=== PATIENT | female | born 1940 | race Caucasian/White ===

== ENCOUNTER 2021-04-20 09:34 | Outpatient (REF) | payer MEDICARE, SELFPAY ==
--- NOTE | ~2021-04-20 | MM_ITS ---
EXAMINATION: BONE DENSITOMETRY CLINICAL INDICATION: Osteopenia. COMPARISON: Previous BD dated 12/06/2016 and baseline BD dated 06/30/2006. TECHNIQUE: Using a [employer] DXA System (software version: 13.1) manufactured by [employer], dual-energy x-ray absorptiometry was performed of the lumbar spine and left hip. The images are of good technical quality. Summary results are attached. FINDINGS: AP SPINE L1-L2 (excluding L3 and L4): The data of L1-L4 has been changed to exclude the L3 and L4 vertebral bodies, because degenerative sclerosis at these levels may cause overestimation of lumbar spine density. Current: BMD 1.113 g/cm2, Z-score 1.5, T-score -0.4, normal, 4.7% increase from previous, 10.4% increase from baseline (<5% change is not significant). Prior: BMD 1.063 g/cm2. Baseline: BMD 1.008 g/cm2. LEFT FEMUR, NECK: Current: BMD 0.819 g/cm2, Z-score 0.6, T-score -1.6, osteopenia. Prior: BMD 0.826 g/cm2. Baseline: BMD 0.856 g/cm2. LEFT FEMUR, TOTAL: Current: BMD 0.898 g/cm2, Z-score 1.2, T-score -0.9, normal, 1.2% decrease from previous, 5.4% decrease from baseline (<5% change is not significant). Prior: BMD 0.909 g/cm2. Baseline: BMD 0.949 g/cm2. IDENTIFIED RISK FACTORS: Osteoporosis, height loss, secondary osteoporosis, menopause, hysterectomy, left oophorectomy. HISTORY OF FRACTURE: None listed. MEDICATIONS: Vitamin D. MM/XR DEXA axial skeleton IMPRESSION: 1. DIAGNOSIS: Osteopenia based on the lowest T-score value of -1.6 in the femoral neck applying World Health Organization criteria. 2. 10-YEAR FRACTURE RISK PREDICTION, FRAX: Major osteoporotic fracture (clinical spine, forearm, hip or shoulder) 12.7%. Hip fracture 3.2%. 3. Treatment Recommendations: NOF guidelines recommend consideration for treatment in postmenopausal women and men age 50 and older presenting with the following: -A hip or vertebral (clinical or morphometric) fracture. -T-score less than or equal to -2.5 at the femoral neck or spine after appropriate evaluation to exclude secondary causes. -Low bone mass at the hip or spine and a 10-year fracture probability by FRAX of greater than or equal to 3% for hip fracture or greater than or equal to 20% for major osteoporotic fracture based on the [place] adapted WHO algorithm. 4. Other Recommendations: All treatment decisions require clinical judgment and consideration of individual patient factors, including patient preferences, comorbidities, previous drug use, risk factors not captured in the FRAX model (e.g. frailty, falls, vitamin D deficiency, increased bone turnover, interval significant decline in bone density) and possible under or overestimation of fracture risk by FRAX. Additional medical evaluation for secondary cause of low bone mineral density may be appropriate. FUTURE SCAN RECOMMENDATION: People with diagnosed cases of osteoporosis or at high risk for fracture should have regular bone mineral density tests. For patients eligible for Medicare, routine testing is allowed once every 2 years. The testing frequency can be increased to one year for patients who have rapidly progressing disease, those who are receiving or discontinuing medical therapy to restore bone mass, or have additional risk factors.
--- NOTE | ~2021-04-20 | MM_ITS ---
EXAMINATION: MM SCREENING DIGITAL BREAST TOMOSYNTHESIS, BILATERAL CLINICAL INFORMATION: Screening. Asymptomatic. The lifetime risk of breast cancer based on the Tyrer-Cuzick Model is 2.5%. COMPARISON: Mammography: April 15, 2020 and studies dating back to September 10, 2013 TECHNIQUE: Digital breast tomosynthesis is performed in both the craniocaudal and mediolateral oblique views along with computer-aided detection (CAD). Synthesized 2D images are generated from the tomosynthesis. FINDINGS: There are scattered areas of fibroglandular density (ACR BI-RADS breast composition Category b). There are no significant masses, abnormal calcifications, or other abnormalities. There is multiplicity and bilaterality of calcifications. Stable region of architectural distortion is seen upper outer aspect of the right breast. MM/MM tomosynthesis screening BI IMPRESSION: There are no significant changes from prior study. ASSESSMENT: BI-RADS 1: Negative RECOMMENDATION: Routine annual mammography screening. This patient's information was entered into a reminder system with a target due date for their next mammogram.
== END 2021-04-20 09:35 | disposition home or self-care (01) ==
LOC: HO.MAMMO 09:34
PROVIDERS: PCP Internal Medicine; Visit Provider Internal Medicine
DX: Z12.31 Encounter for screening mammogram for malignant neoplasm of breast (principal); Z13.820 Encounter for screening for osteoporosis; M81.0 Age-related osteoporosis without current pathological fracture; M85.80 Other specified disorders of bone density and structure, unspecified site; Z78.0 Asymptomatic menopausal state; Z90.722 Acquired absence of ovaries, bilateral; Z98.890 Other specified postprocedural states; Z79.899 Other long term (current) drug therapy
CPT/HCPCS: 77063; 77067; 77080

== ENCOUNTER 2022-04-28 09:36 | Outpatient (REF) | payer MEDICARE, SELFPAY ==
--- NOTE | ~2022-04-28 | MM_ITS ---
EXAMINATION: MM SCREENING DIGITAL BREAST TOMOSYNTHESIS, BILATERAL CLINICAL INFORMATION: Screening. Asymptomatic. The lifetime risk of breast cancer based on the Tyrer-Cuzick Model is 2%. COMPARISON: Mammography: 04/20/2021, 04/15/2020, 04/10/2019 TECHNIQUE: Digital breast tomosynthesis is performed in both the craniocaudal and mediolateral oblique views along with computer-aided detection (CAD). Synthesized 2D images are generated from the tomosynthesis. FINDINGS: There are scattered areas of fibroglandular density (ACR BI-RADS breast composition Category b). Parenchymal pattern is similar to prior studies. There is no developing density or interval mass or architectural abnormality. There are 2 biopsy clip markers again noted posterior upper outer left breast. There are scattered coarse, punctate round, and some ductal secretory calcifications. The axilla and skin contours are unremarkable. No significant changes from prior studies. MM/MM tomosynthesis screening BI IMPRESSION: No mammographic evidence of malignancy. ASSESSMENT: BI-RADS 2: Benign RECOMMENDATION: Routine annual mammography screening. This patient's information was entered into a reminder system with a target due date for their next mammogram.
== END 2022-04-28 09:37 | disposition home or self-care (01) ==
LOC: HO.MAMMO 09:36
PROVIDERS: PCP Internal Medicine; Visit Provider Internal Medicine
DX: Z12.31 Encounter for screening mammogram for malignant neoplasm of breast (principal)
CPT/HCPCS: 77063; 77067

== ENCOUNTER 2023-05-11 10:44 | Outpatient (REF) | payer MEDICARE, OTHER, SELFPAY ==
--- NOTE | ~2023-05-11 | MM_ITS ---
EXAMINATION: MM SCREENING DIGITAL BREAST TOMOSYNTHESIS, BILATERAL CLINICAL INFORMATION: Screening. Asymptomatic. COMPARISON: Mammography: This study is compared with prior exams dating back to 2018. TECHNIQUE: Digital breast tomosynthesis is performed in both the craniocaudal and mediolateral oblique views along with computer-aided detection (CAD). Synthesized 2D images are generated from the tomosynthesis. FINDINGS: The breasts are heterogeneously dense, which may obscure small masses (ACR BI-RADS breast composition Category c). There are no significant masses, abnormal calcifications, or other abnormalities. There are 2 tissue markers in the superior aspect of the left breast from prior benign percutaneous biopsy. There are few, benign calcifications in each breast. MM/MM tomosynthesis screening BI IMPRESSION: No mammographic evidence of malignancy. ASSESSMENT: BI-RADS BI-RADS 2 - Benign Findings RECOMMENDATION: Routine annual mammography screening. 1 year F/U This examination should not preclude the clinical evaluation of a suspicious palpable abnormality. This patient's information was entered into a reminder system with a target due date for their next mammogram.
== END 2023-05-11 10:45 | disposition home or self-care (01) ==
LOC: HO.MAMMO 10:44
PROVIDERS: PCP Internal Medicine; Visit Provider Internal Medicine
DX: Z12.31 Encounter for screening mammogram for malignant neoplasm of breast (principal)
CPT/HCPCS: 77063; 77067

== ENCOUNTER → 2023-05-11 11:00 | Outpatient (BNV) | payer MEDICARE, OTHER, SELFPAY | PROVIDERS: PCP Internal Medicine; Visit Provider Radiology Diagnostic Radiology | DX: Z12.31 Encounter for screening mammogram for malignant neoplasm of breast (principal) | CPT/HCPCS: 77063; 77067 ==

== ENCOUNTER 2024-06-14 14:44 | Outpatient (REF) | payer MEDICARE, OTHER, SELFPAY ==
--- NOTE | ~2024-06-14 | MM_ITS ---
EXAMINATION: MM SCREENING DIGITAL BREAST TOMOSYNTHESIS, BILATERAL CLINICAL INFORMATION: Screening. Asymptomatic. COMPARISON: Mammography: Comparison is made with available priors TECHNIQUE: Digital breast mammography with tomosynthesis is performed in both the craniocaudal and mediolateral oblique views along with computer-aided detection (CAD). FINDINGS: The breasts are heterogeneously dense, which may obscure small masses (ACR BI-RADS breast composition Category c). Left marker clips. There are no significant masses, abnormal calcifications, or other abnormalities. MM/MM tomosynthesis screening BI IMPRESSION: No mammographic evidence of malignancy. ASSESSMENT: BI-RADS BI-RADS 2 - Benign Findings RECOMMENDATION: Routine annual mammography screening. 1 year F/U This examination should not preclude the clinical evaluation of a suspicious palpable abnormality. This patient's information was entered into a reminder system with a target due date for their next mammogram. Electronically signed by: Nilsa Taylor DO 06/25/2024 10:57 AM CRISTINA
== END 2024-06-14 14:45 | disposition home or self-care (01) ==
LOC: HO.MAMMO 14:44
PROVIDERS: PCP Internal Medicine; Visit Provider Internal Medicine
DX: Z12.31 Encounter for screening mammogram for malignant neoplasm of breast (principal)
CPT/HCPCS: 77063; 77067

== ENCOUNTER → 2024-06-14 15:00 | Outpatient (BNV) | payer MEDICARE, OTHER, SELFPAY | PROVIDERS: PCP Internal Medicine; Visit Provider Internal Medicine | DX: Z12.31 Encounter for screening mammogram for malignant neoplasm of breast (principal) | CPT/HCPCS: 77063; 77067 ==

== ENCOUNTER 2025-06-20 11:07 | Outpatient (REF) | payer MEDICARE, OTHER, SELFPAY ==
--- NOTE | ~2025-06-20 | MM_ITS ---
EXAMINATION: MM SCREENING DIGITAL BREAST TOMOSYNTHESIS, BILATERAL CLINICAL INFORMATION: Screening. Asymptomatic. COMPARISON: Mammography: Comparison is made with available priors TECHNIQUE: Digital breast mammography with tomosynthesis is performed in both the craniocaudal and mediolateral oblique views along with computer-aided detection (CAD). FINDINGS: The breasts are heterogeneously dense, which may obscure small masses. Left marker clips. There are no significant masses, abnormal calcifications, or other abnormalities. MM/MM tomosynthesis screening BI IMPRESSION: No mammographic evidence of malignancy. ASSESSMENT: BI-RADS Category 2: Benign RECOMMENDATION: Routine annual mammography screening. 1 year F/U This examination should not preclude the clinical evaluation of a suspicious palpable abnormality. This patient's information was entered into a reminder system with a target due date for their next mammogram. Electronically signed by: Nilsa Taylor DO 06/24/2025 09:07 AM [facility]
--- OUTSIDE RECORDS SUMMARY | 2025-06-20 11:59 | XMS_ITS | Encounter Summary ---
Author Organization [facility] Address [address] [place] [address] Phone Care Team Providers Care Clinical Educator Name Role Phone Abiodun Porras MD Primary Care Provider [phone] Encounter Details Date Type Department Care Team (Late st Contact Info) Description 10/07/2024 Documentation Only [facility] [address] [place] [phone] [place] [address] [place] [phone] Social History Tobacco Use Types Packs/Day Years Used Date Smoking Tobacco: Former Cigarettes Passive Smoke Exposure: Never Smokeless Tobacco: Never Alcohol Use Standard Drinks/Week Comments Yes 0 (1 standard drink = 0.6 oz pur e alcohol) 3 mix drinks a week Comments Unknown Sex and Gender Information Value Date Recorded Sex Assigned at Not on file Legal Sex Female 5:02 PM EST Gender Identity Not on file Sexual Orientation Not on file documented as of this encounter Plan of Treatment Upcoming Encounters Date Type Department Care Team (Late st Contact Info) Description 11/04/2025 10:50 AM EDT Office Visit [facility] [address] [place] [phone] Ron Tan MD [address] [place] [address] documented as of this encounter Visit Diagnoses Not on filedocumented in this encounter Care Teams Clinical Educator Relationship Specialty Start Date End Date Abiodun Porras MD [address] [place] [phone] PCP - General Internal Medicine 05/06/22 documented as of this encounter
--- OUTSIDE RECORDS SUMMARY | 2025-06-20 11:59 | XMS_ITS | Encounter Summary ---
Author Organization [facility] Address [address] [place] [address] Phone Care Team Providers Care Mysql Dba Name Role Phone Abiodun Porras MD Primary Care Provider [phone] Encounter Details Date Type Department Care Team (Late st Contact Info) Description 09/02/2022 Documentation Only [facility] [address] [place] [phone] Abiodun Porras MD [address] [place] [phone] Social History Tobacco Use Types Packs/Day Years [...] Visit [facility], [address] [place] [phone] Ron Tan MD [address] [place] [address] [place] [address] documented as of this encounter Visit Diagnoses Not on filedocumented in this encounter Care Teams Mysql Dba Relationship Specialty Start Date End Date Abiodun Porras MD [address] [place] [address] PCP - General Internal Medicine 05/06/22 documented as of this encounter
--- OUTSIDE RECORDS SUMMARY | 2025-06-20 11:59 | XMS_ITS | Encounter Summary ---
Author Organization [facility] Address [address] [place] [address] Phone Care Team Providers Care Food And Beverage Outlets Manager Name Role Phone Abiodun Porras MD Primary Care Provider [phone] Encounter Details Date Type Department Care Team (Late st Contact Info) Description 10/07/2024 Documentation Only [facility] [address] [place] [phone] [place] [address] [place] [phone] Social History Tobacco Use Types Packs/Day [...] Visit [facility] [address] [place] [phone] Ron Tan MD [address] [place] [address] documented as of this encounter Visit Diagnoses Not on filedocumented in this encounter Care Teams Food And Beverage Outlets Manager Relationship Specialty Start Date End Date Abiodun Porras MD [address] [place] [phone] PCP - General Internal Medicine 05/06/22 documented as of this encounter
--- OUTSIDE RECORDS SUMMARY | 2025-06-20 11:59 | XMS_ITS | Encounter Summary ---
Author Organization [facility] Address [address] [place] [address] Phone Care Team Providers Care Data Conversion Developer Name Role Phone Abiodun Porras MD Primary Care Provider [phone] Encounter Details Date Type Department Care Team (Late st Contact Info) Description 09/06/2022 Documentation Only [facility] [address] [phone] Abiodun Porras MD [address] [place] [phone] Social History Tobacco Use Types Packs/Day Years [...] Visit [facility] [address] [place] [phone] Ron Tan MD [address] [place] [address] [place] [address] [place] [address] documented as of this encounter Visit Diagnoses Not on filedocumented in this encounter Care Teams Data Conversion Developer Relationship Specialty Start Date End Date Abiodun Porras MD [address] [place] [phone] PCP - General Internal Medicine 05/06/22 documented as of this encounter
--- OUTSIDE RECORDS SUMMARY | 2025-06-20 11:59 | XMS_ITS | Clinical Summary ---
Author Organization [facility], Address [address] [place] [address] [place] [address] Phone Care Team Providers Care Orthodontist Assistant Name Role Phone Abiodun Porras MD Primary Care Provider [phone] Allergies Active Allergy Reactions Criticality Noted Date Comments Amiodarone 03/24/2022 Amlodipine 06/04/2018 BLE edema Aspartame 01/06/2018 Atorvastatin Other (see comments) 08/26/2020 Bee Venom 03/24/2022 Cefuroxime Diarrhea 11/30/2017 diarrhea Cilostazol Other (see comments),Nausea And Vomiting,Palpitatio ns,Shortness of breath High 01/12/2022 Ciprofloxacin 11/23/2018 Itching eyes Codeine Other (see comments) 03/21/2008 Bronchospasm or Wheezing Cyclobenzaprine Rash,Shortness of breath High 09/09/2010 Diltiazem Other (see comments),Shortness of breath High 11/22/2021 Bradycardia and hypotension Doxycycline Nausea And Vomiting 04/21/2022 nauseau Duloxetine Nausea 04/25/2019 Fosfomycin 08/24/2021 Myalgia, diahrrea and vomiting Gabapentin Other (see comments) High 12/28/2011 activated fibromyalgia diarrhea Hydralazine Other (see comments) High 01/10/2022 Other reaction(s): Pain Chest pain and dyspnea Iodinated Contrast Media 03/24/2022 Irbesartan Diarrhea 03/26/2018 Methenamine Nausea And Vomiting 10/25/2021 Pt reports dysuria while on medication Metoprolol Other (see comments) 03/10/2020 Very slow pulse and weakness Morphine 03/24/2022 Nitrofurantoin Other (see comments) 12/28/2011 Myalgia, diahrrea and vomiting Other Other (see comments) 12/24/2009 Sugar Substitutes Codeine Derivatives. Ivp Dye. Yellow Dyes. MSG and ALL SUGAR SUBSTITUTE Chicken feathers-itchy Penicillins Hives,Other (see comments) 03/21/2008 Povidone Iodine 03/24/2022 Povidone-Iodine 03/24/2022 Red Dye #40 (Allura Red) 03/24/2022 Regadenoson Shortness of breath High 06/21/2022 Nuclear test Chest pressure, nausea, dyspnea and palpatations Evolocumab 04/27/2022 Rosuvastatin Other (see comments) 10/09/2020 Shellfish Allergy 03/24/2022 Yellow Dye #6 ([place] Yellow) GI intolerance High 12/30/2011 Medications acetaminophen (TYLENOL) 325 MG tablet Take 650 mg by mouth if needed 03/24/2022 Active aspirin (ST YONI) 81 MG EC tablet Take 81 mg by mouth 1 (one) time each day 03/24/2022 Active CINNAMON PO Take 2 capsules by mouth 2 (two) times a day 03/24/2022 Active flecainide (TAMBOCOR) 50 MG tablet Take 50 mg by mouth in the morning and 50 mg in the evening. 03/06/2022 Active fluorometholone (FML) 0.1 % ophthalmic suspension 02/06/2022 Active rivaroxaban (XARELTO) 15 MG tablet Take 15 mg by mouth 1 (one) time each day 04/03/2022 Active estradiol (ESTRACE) 0.1 MG/GM vaginal cream Insert 1 g into the vagina daily 07/18/2022 Active tretinoin (RETIN-A) 0.05 % cream 08/26/2022 Active olmesartan (Benicar) 20 MG tablet Take 1 tablet (20 mg total) by mouth 1 (one) time each day 30 tablet 11 2023 Active doxazosin (CARDURA) 2 MG tablet Take 1 mg by mouth in the morning and 1 mg in the evening. 10/04/2024 Active metoprolol succinate XL (TOPROL XL) 25 MG 24 hr tablet Take 12.5 mg by mouth in the morning. 09/24/2024 Active Aspirin Buf,CaCarb-MgCa rb-MgO, (Bufferin) 325 MG tablet Take 325 mg by mouth in the morning. 05/23/2024 Active Inclisiran Sodium 284 MG/1.5ML solution prefilled syringe Inject 284 mg under the skin Active LORazepam (ATIVAN) 0.5 MG tablet 11/28/2023 Active Active Problems Problem Noted Date Diagnosed Date Hypertension 04/27/2022 Chronic kidney disease 03/24/2022 Hypertensive chronic kidney disease with stage 1 through stage 4 chronic kidney disease, or unspecified chronic kidney disease 03/24/2022 Stage 3a chronic kidney disease 10/25/2021 Recurrent urinary tract infection 02/15/2018 Resolved Problems Problem Noted Date Diagnosed Date Resolved Date Erythematous condition 03/24/202207/05 History of falling 03/24/2022 Hyperlipidemia 03/24/2022 07/05/2022 Hypomagnesemia 03/24/2022 07/05/2022 FDC current use of aspirin 03/24/2022 07/05/2022 Peripheral vascular disease 03/24/2022 07/05/2022 Personal history of nicotine dependence 03/24/2022 07/05/2022 Personal history of other ve nous thrombosis and embolism 03/24/2022 07/05/2022 Atrial fibrillation 03/21/2022 07/05/20 Syncope and collapse 11/09/2021 022 Overview (04/27/2022): Last Assessment & Plan: She had 2 syncopal episodes after her peripheral arterial procedure. She had been n.p.o. prior to the procedure. The episode occurred while she was sitting in the car making orthostatic hypotension less likely. It is possible that she had a vasovagal episode. Her work-up at [facility] was normal other than receiving IV fluids for orthostatic hypotension. I suggested that she wear a 30-day event monitor to better evaluate for an arrhythmia. I have also suggested that she have a stress test to rule out significant CAD. We will follow-up with her after those have been completed. Degenerative cervical spinal stenosis 07/23/2020 07/05/2022 Overview (04/27/2022): Added automatically from request for surgery [id number] Acquired unequal leg length 05/23/2019 07/05/2022 Overview (04/27/2022): Added automatically from request for surgery [id number] Bilateral arthropathy of sacroiliac joints 05/23/2019 07/05/2022 Overview (04/27/2022): Sacroiliitis: SACROILIITIS NEC - 720.2 Added automatically from request for surgery [id number] Cough 01/24/2019 07/05/2022 Chest pain 09/12/2018 07/05/2022 Overview (04/27/2022): Last Assessment & Plan: She reports chest discomfort when she lays down at night but nothing during the day when she is active. It sounds like she is having some issues with reflux. She had a stress test in [address] Hill interpreted as overall low risk. She is active during the day with no exertional symptoms. Dysuria 02/15/2018 07/05/2022 History of cerebrovascular accident 01/06/2018 07/05/2022 Overview (04/27/2022): Last Assessment & Plan: -History of TIA/CVA. Blood pressure control was reviewed with her the importance of blood pressure control was reviewed with her. It appears that sometimes her blood pressures can be labile. I have encouraged her to exercise much as possible and work on a continued heart healthy diet. Her PCP is considering having a 24-hour blood pressure monitor in place to assess for trends and assist with optimization of medications. Stroke symptoms and red flags were reviewed with her during office visit and she indicates understanding. -She has a history of paroxysmal atrial fibrillation and is on Xarelto for anticoagulation. Bilateral cramp of muscle of lower limbs 08/18/2017 07/05/2022 Impaired fasting glycemia 08/18/2017 Pure hypercholesterolemia 08/18/2017 Overview (04/27/2022): Last Assessment & Plan: The patient has multiple medication allergies and sensitivities including all the statin she is tried and now the Repatha. The patient does not believe she has tried niacin or a fibrate which can be considered as an outpatient. 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 01/28/2016 07/05/2022 Degeneration of lumbar intervertebral disc 05/01/2013 07/05/2022 Overview (04/27/2022): Lumbar Disc Degeneration Lumbar facet joint pain 05/01/20130 12/2021 Overview (04/27/2022): Lumbar Facet Syndrome Anxiety 07/11/2012 07/05/2022 Overview (04/27/2022): Anxiety Cervical spondylosis 07/11/2012 022 Overview (04/27/2022): Cervical Radiculopathy Added automatically from request for surgery [id number] Cervical Spondylosis Dysthymia 07/11/2012 07/05/2022 Overview (04/27/2022): Dysthymic Disorder Arthritis 09/09/2010 07/05/2022 Overview (04/27/2022): H/O Arthritis Primary fibromyalgia syndrome 03/21/2008 07/05/2022 Overview (04/27/2022): H/O Primary fibromyalgia syndrome History of diverticulitis 03/21/2008 Overview (04/27/2022): H/O Diverticulitis Encounters Date Type Department Care Team Description 04/22/2025 9:50 AM EDT Office Visit [facility] [address] [place] [address] Ron Tan MD Stage 3a chronic kidney disease (HCC) (Primary Dx) 04/22/2025 Orders Only [facility] [address] [place] [address] Lulu Syed [place] Stage 3a chronic kidney disease (HCC) (Primary Dx) from Last 3 Months Immunizations Immunization Administration Dates Next Due Influenza Split High Dose Pr eservative Free IM 05/27/2019,05/25/2018 Influenza, Unspecified 05/12/2022,04/28/2021,03/2020 Pfizer SARS-COV-2 10/03/2020,09/12/2020 Pneumococcal Conjugate 13-Valent 05/27/2019 Pneumococcal Polysaccharide 03/19/2012, 7 Shingrix 09/14/2021,03/02/2021 TD Preservative Free 02/11/2011 Td, Unspecified 01/28/2011 Zoster 05/21/2012 Family History Medical History Relation Comments Heart attack Father Relation Status Comments Father Social History Tobacco Use Types Packs/Day Years Used Date Smoking Tobacco: Former Cigarettes Passive Smoke Exposure: Never Smokeless Tobacco: Never Tobacco Cessation:Counseling Given: Not Answered Alcohol Use Standard Drinks/Week Comments Yes 0 (1 standard drink = 0.6 oz pur e alcohol) 3 mix drinks a week Comments Unknown Sex and Gender Information Value Date Recorded Sex Assigned at Not on file Legal Sex Female 5:02 PM EST Gender Identity Not on file Sexual Orientation Not on file Last Filed Vital Signs Vital Sign Reading Time Taken Comments Blood Pressure 150/74 03/16/2023 11:05 AM EDT Pulse 56 07/06/2022 2:45 PM EST Temperature - - Respiratory Rate - - Oxygen Saturation 99% 04/27/2022 12: 56 PM EDT Inhaled Oxygen Concentration - - Weight 63.4 kg (139 lb 12.8 oz) 07/06/2022 2:45 PM EST Height 167.6 cm (5' 6 ) 04/27/2022 12:5 6 PM EDT Body Mass Index 22.56 04/27/2022 12:56 PM EDT Plan of Treatment Upcoming Encounters Date Type Department Care Team (Late st Contact Info) Description 11/04/2025 10:50 AM EDT Office Visit [facility] [place], [address] [place] [address] Ron Tan MD [address] [facility] [place] [phone] Health Maintenance Due Date Last Done Comments Pneumococcal Vaccine: 50+ Years Completed 05/27/2019, 03/19/2012, 12/29/2006 Pneumococcal Vaccine: Peds (0 to 5 Years) and At-Risk Patients (6 to 49 Years) Discontinued 05/27/2019, 03/19/2012, 12/29/2006 Influenza Vaccine Completed 03/27/2025, , 05/17/2023, Additional history exists Hepatitis B Vaccine Aged Out No longe r eligible based on patient's age to complete this topic Insurance Medicare [facility] Medicare [facility] Care Teams Orthodontist Assistant Relationship Specialty Start Date End Date Abiodun Porras MD [address] [place] [address] PCP - General Internal Medicine 05/06/22
--- OUTSIDE RECORDS SUMMARY | 2025-06-20 11:59 | XMS_ITS | Clinical Summary ---
Author Organization [address] [place] [address] [place] [phone] Phone Care Team Providers Care Sales Planning Coordinator Name Role Phone Abiodun Porras MD Primary Care Provider [phone] Allergies Active Allergy Reactions Criticality Noted Date Comments Amiodarone 01/28/2022 Amlodipine 01/28/2022 Bee Venom Protein (Honey Bee) 01/28/2022 Cilostazol 01/28/2022 Clopidogrel 04/12/2023 Plavix Swelling, shortness of breath, itching Codeine 01/28/2022 Diltiazem 01/28/2022 Doxycycline 03/31/2022 Doxycycline Hyclate 03/31/2022 Evolocumab 01/28/2022 Repatha Fosfomycin 01/28/2022 Gabapentin 01/28/2022 Hydralazine 01/28/2022 Iodinated Contrast Media 01/28/2022 Iodine 01/28/2022 Nitrofurazone 01/28/2022 Other 01/28/2022 Food Allergy Sugar substitutes, MSG Penicillins 01/28/2022 Red Dye 01/28/2022 Shellfish Containing Products 01/28/2022 Medications acetaminophen (TYLENOL) 500 mg tablet Take 500 mg by mouth every 6 hours as needed. Active aspirin 81 mg EC tablet Take 1 Tablet by mouth daily. Active cholecalciferol (VITAMIN D-3) 25 mcg (1,000 unit) tablet Take by mouth. Ac tive cimetidine (TAGAMET) 400 mg tablet Take 400 mg by mouth 2 times daily. Active flecainide (TAMBOCOR) 50 mg tablet Take 50 mg by mouth 2 times daily. Active fluorometholone (FML) 0.1 % ophthalmic suspension 1 Drop every 4 hours. Active inclisiran (Leqvio) 284 mg/1.5 mL syringe injcetion Inject into the skin. Active minoxidiL (LONITEN) 2.5 mg tablet Take 1 Tablet by mouth daily. Active olmesartan (BENICAR) 20 mg tablet Take 1 Tablet by mouth 2 times daily. Active rivaroxaban (XARELTO) 15 mg tablet Take by mouth. Activ e traMADoL (ULTRAM) 50 mg tablet Take 25 mg by mouth at bedtime. Active aspirin 325 mg EC tablet Take 1 tablet (325 mg total) by mouth 1 (one) time each day. Active predniSONE (DELTASONE) 50 mg tablet Take one table 13 hrs prior to procedure, take one table 7 hrs prior to procedure, take one tablet one hour prior to procedure. 3 each 5 Active Additional Information Patient not taking.Reported on 04/21/2025 diphenhydrAMINE (BENADRYL) 50 mg tablet Patient to take one tablet one hour prior to IV contrast for Cat scan. 1 tablet 5 Active metoprolol succinate (TOPROL-XL) 25 mg 24 hr tablet Take 1 tablet (25 mg total) by mouth daily. 5 Active doxazosin (CARDURA) 2 mg tablet Take 0.5 tablets (1 mg total) by mouth 2 times daily. 5 Active EPINEPHrine (EPIPEN) 0.3 mg/0.3 mL injection INJECT 0.3 ML (0.3 MG) INTO THE MUSCLE NEEDED FOR ANAPHYLAXIS Strength: 0.3 mg/0.3 mL 5 Active oxyCODONE (ROXICODONE) 5 mg immediate release tablet Take 1 tablet (5 mg total) by mouth 2 times daily as needed. 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); PAD (peripheral artery disease) ([facility] V24) from Last 3 Months Surgical History Surgery Date Site/Laterality Comments OTHER SURGICAL HISTORY 01/06/2022 PROCEDURE: ME SLCTV CATHJ 3RD+ ORD SLCTV ABDL PEL/LXTR BRNCH OTHER SURGICAL HISTORY 01/06/2022 PROCEDURE: X-RAY EXAM OF ARM/LEG ARTERY OTHER SURGICAL HISTORY 01/06/2022 PROCEDURE: ULTRASOUND GUIDANCE FOR VASCULAR AC OTHER SURGICAL HISTORY 03/10/2022 Left PROCEDURE: ME BYPASS W/VEIN FEMORAL-POPLITEAL; COMMENT: Left femoral-popliteal bypass with reverse greater saphenous vein OTHER SURGICAL HISTORY 03/21/2023 PROCEDURE: ME SLCTV CATH XTRNL CAROTID ANGIO XTRNL CAROTD CIRC OTHER SURGICAL HISTORY 03/21/2023 PROCEDURE: ULTRASOUND GUIDANCE FOR VASCULAR AC Social History Tobacco Use Types Packs/Day Years Used Date Smoking Tobacco: Former Cigarettes Smokeless Tobacco: Never Comments Unknown Sex and Gender Information Value Date Recorded Sex Assigned at Female 11/05/2024 9:44 AM EDT Legal Sex Female 1:46 PM EST Gender Identity Female 11/05/2024 9:44 AM EDT Sexual Orientation Straight 11/05/2024 9: 44 AM EDT Obstetrics History Last Filed Vital Signs Vital Sign Reading Time Taken Comments Blood Pressure 140/64 04/21/2025 3:32 PM EDT Pulse 60 04/21/2025 3:32 PM EDT Temperature 36.8 C (98.3 F) 12/25/2024 4:28 PM EDT Respiratory Rate 16 04/21/2025 3:32 PM EDT Oxygen Saturation 99% 12/25/2024 4:28 PM EDT Inhaled Oxygen Concentration - - Weight 60.3 kg (133 lb) 04/21/2025 3:32 PM EDT Height 167.6 cm (5' 6 ) 04/21/2025 3:32 PM EDT Body Mass Index 21.47 04/21/2025 3:32 PM EDT Plan of Treatment Upcoming Encounters Date Type Department Care Team (Late st Contact Info) Description 11/10/2025 10:30 AM EDT Office Visit [facility] [place] [address] [place] [address] Awais Nicholson MD [address] [place] [phone] Health Maintenance Due Date Last Done Comments RSV Immunization Adult Patients (1 - 1-dose 75+ series) 2016 DTaP,Tdap,and Td Vaccines (3 - Td or Tdap) 02/11/2021 02/11/2011, 01/28/2011 Falls Risk Assessment 07/10/2022 Medicare Annual Wellness Visit 07/10/2022 Osteoporosis Screening (Bone Density Screening) 07/10/2022 Social Influencers of Health Screening 07/10/2022 Depression Screening 07/31/2024 COVID-19 Vaccine ( season) 2025 05/10/2024, 06/08/2023, 06/03/2022, Additional history exists Hypertension/CHF/CAD Annual BMP Blood Test 12/25/2025 12/25/2024, 12/06/2024, 11/14/2024, Additional history exists Cholesterol Screening (Lipid Panel) 04/02/2030 04/02/2025, 08/23/2024 Pneumococcal Vaccine: 50+ Years Completed 05/27/2019, 03/19/2012, 12/29/2006 Zoster Vaccines Completed 09/14/2021, 08/0 09/2020, 05/21/2012 Influenza Vaccine Completed 03/27/2025, , 05/17/2023, Additional history exists HIB Vaccines Aged Out No longer eligi ble based on patient's age to complete this topic HPV Vaccines Aged Out No longer eligi ble based on patient's age to complete this topic Hepatitis A Vaccines Aged Out No long er eligible based on patient's age to complete this topic Hepatitis B Vaccines Aged Out No long er eligible based on patient's age to complete this topic IPV Vaccines Aged Out No longer eligi ble based on patient's age to complete this topic MMR Vaccines Aged Out No longer eligi ble based on patient's age to complete this topic Meningococcal ACWY Vaccine Aged Out N o longer eligible based on patient's age to complete this topic Meningococcal B Vaccine Aged Out No l onger eligible based on patient's age to complete this topic RSV Immunization Patients Under 20 months Aged Out No longer eligible based on patient's age to complete this topic Varicella Vaccines Aged Out No longer eligible based on patient's age to complete this topic Procedures Procedure Name Priority Date/Time Associated Diagnosis Comments COMPREHENSIVE METABOLIC PANEL STAT 12/25/2024 12:26 PM EDT from Last 3 Months or Most Recently Relevant to Health Maintenance Results * (ABNORMAL) Comprehensive metabolic panel (12/25/2024 12:26 PM EDT) Sodium 139 133 - 145 mmol/L LAB CHEMISTRY METHOD 12/25/2024 1:56 PM [facility] Potassium 3.7 3.5 - 5.5 mmol/L LAB CHEMISTRY METHOD 12/25/2024 1:56 PM [facility] Chloride 105 96 - 110 mmol/L LAB CHEMISTRY METHOD 12/25/2024 1:56 PM [facility] CO2 26 21 - 32 mmol/L LAB CHEMISTRY METHOD 12/25/2024 1:56 PM [facility] Anion Gap 8 3 - 11 LAB CHEMISTRY METHOD 12/25/2024 1:56 PM [facility] Glucose 167(H) 70 - 100 mg/dL LAB CHEMISTRY METHOD 12/25/2024 1:56 PM [facility] BUN 24 5 - 25 mg/dL LAB CHEMISTRY METHOD 12/25/2024 1:56 PM [facility] Creatinine 0.86 0.50 - 1.10 mg/dL LAB CHEMISTRY METHOD 12/25/2024 1:56 PM [facility] eGFR 67 >=60 mL/min/1. 73m2 LAB CHEMISTRY METHOD 12/25/2024 1:56 PM EDT [facility] Comment:Calculation based on the Chronic Kidney Disease Epidemiology Collaboration (CKD-EPI) equation refit without adjustment for race. BUN/Creatinine Ratio 27.9 LAB CHEMISTRY METHOD 12/25/2024 1:56 PM EDT [facility] Calcium 9.2 8.5 - 10.5 mg/dL LAB CHEMISTRY METHOD 12/25/2024 1:56 PM T [facility] AST (SGOT) 13 10 - 42 unit/L LAB CHEMISTRY METHOD 12/25/2024 1:56 PM [facility] ALT (SGPT) 22 10 - 60 unit/L LAB CHEMISTRY METHOD 12/25/2024 1:56 PM [facility] Alkaline Phosphatase 64 42 - 121 unit/L LAB CHEMISTRY METHOD 12/25/2024 1:56 PM T [facility] Total Protein 6.6 6.0 - 8.0 g/dL LAB CHEMISTRY METHOD 12/25/2024 1:56 PM [facility] Albumin 3.5 3.2 - 5.0 g/dL LAB CHEMISTRY METHOD 12/25/2024 1:56 PM [facility] Total Bilirubin 0.6 0.0 - 1.4 mg/dL LAB CHEMISTRY METHOD 12/25/2024 1:56 PM T [facility] Blood Venous blood specimen / Unknown Venipuncture / Unknown 12/25/2024 12:26 PM EDT 12/25/2024 1:02 PM EDT us Sadi Chowdhury MD LAB BLOOD ORDERABLES Final Resu lt [facility] [address] [place] [address], from Last 3 Months or Most Recently Relevant to Health Maintenance Insurance MEDICARE [facility] Advance Directives Documents on File Type Date Recorded Patient Seed Mill Superintendent Expl anation Health Care Decision (hx) 12/01/2014 AD HUNTER DIRECTIVE Health Care Decision (hx) 12/01/2014 AD HUNTER DIRECTIVE Health Care Decision (hx) 12/01/2014 AD HUNTER DIRECTIVE Health Care Decision (hx) 12/01/2014 AD HUNTER DIRECTIVE Health Care Decision (hx) 12/01/2014 AD HUNTER DIRECTIVE Health Care Decision (hx) 12/01/2014 AD HUNTER DIRECTIVE Health Care Decision (hx) 12/01/2014 AD HUNTER DIRECTIVE Health Care Decision (hx) 12/01/2014 AD HUNTER DIRECTIVE Health Care Decision (hx) 12/01/2014 AD HUNTER DIRECTIVE Health Care Decision (hx) 12/01/2014 AD HUNTER DIRECTIVE Health Care Decision (hx) 12/01/2014 AD HUNTER DIRECTIVE Health Care Decision (hx) 12/01/2014 AD HUNTER DIRECTIVE Health Care Decision (hx) 12/01/2014 AD HUNTER DIRECTIVE Health Care Decision (hx) 12/01/2014 AD HUNTER DIRECTIVE Care Teams Sales Planning Coordinator Relationship Specialty Start Date End Date Abiodun Porras MD [address] [place] [phone] PCP - General Internal Medicine 01/04/22
--- OUTSIDE RECORDS SUMMARY | 2025-06-20 11:59 | XMS_ITS | Encounter Summary ---
Author Organization [facility] [place], Address [address] [place] [address] Phone Care Team Providers Care Geriatric Personal Care Aide Name Role Phone Abiodun Porras MD Primary Care Provider [phone] Encounter Details Date Type Department Care Team (Late st Contact Info) Description 09/02/2022 Documentation Only [facility] [address] [place] [phone] Abiodun Porras MD [address] [place] [phone] Social History Tobacco Use Types Packs/Day Years [...] Visit [facility] [place], [address] [place] [phone] Ron Tan MD [address] [place] [address] [place] [address] documented as of this encounter Visit Diagnoses Not on filedocumented in this encounter Care Teams Geriatric Personal Care Aide Relationship Specialty Start Date End Date Abiodun Porras MD [address] [place] [address] PCP - General Internal Medicine 05/06/22 documented as of this encounter
--- OUTSIDE RECORDS SUMMARY | 2025-06-20 11:59 | XMS_ITS | Encounter Summary ---
Author Organization [facility] Address [address] [place] [address] Phone Care Team Providers Care Marine Superintendent Name Role Phone Abiodun Porras MD Primary Care Provider [phone] Reason for Visit * Reason Comments New Med Request Encounter Details Date Type Department Care Team (Late Contact Info) Description 10/18/2022 Refill [facility] [address] [place] [phone] Ron Tan MD [address] [place] [address] [place] [phone] Social History Tobacco Use Types Packs/Day Years [...] Office Visit [facility] [address] [place] [phone] Ron Tan MD [address] [facility] [place] [address] documented as of this encounter Visit Diagnoses Not on filedocumented in this encounter Care Teams Marine Superintendent Relationship Specialty Start Date End Date Abiodun Porras MD [address] [place] [address] PCP - General Internal Medicine 05/06/22 documented as of this encounter
--- OUTSIDE RECORDS SUMMARY | 2025-06-20 11:59 | XMS_ITS | Encounter Summary ---
Author Organization [facility] Address [address] [place] [address] Phone Care Team Providers Care Telehealth Nurse Educator Name Role Phone Abiodun Porras MD Primary Care Provider [phone] Encounter Details Date Type Department Care Team (Late st Contact Info) Description 06/08/2022 Telephone [facility] [address] [place] [phone] Katiuska Stevens Social History Tobacco Use Types Packs/Day Years [...] on file documented as of this encounter Miscellaneous Notes * Telephone Encounter - Katiuska Stevens - 06/08/2022 2:13 PM EST This PT called today to follow up on a Nuclear Test. PT stated that the test was not preformed because they found her to be allergic to the test. She would like a call back on what will be done in place of this test. Please advise. documented in this encounter Plan of Treatment Upcoming Encounters Date Type Department Care Team (Late st Contact Info) Description 11/04/2025 10:50 AM EDT Office Visit [facility], [address] [phone] Ron Tan MD [address] [place] [phone] documented as of this encounter Visit Diagnoses Not on filedocumented in this encounter Care Teams Telehealth Nurse Educator Relationship Specialty Start Date End Date Abiodun Porras MD [address] [place] [id number] PCP - General Internal Medicine 05/06/22 documented as of this encounter
--- OUTSIDE RECORDS SUMMARY | 2025-06-20 11:59 | XMS_ITS | Encounter Summary ---
Author Organization [facility], Address [address] [place] [address] Phone Care Team Providers Care Nascar Driver Name Role Phone Abiodun Porras MD Primary Care Provider [phone] Encounter Details Date Type Department Care Team (Late st Contact Info) Description 09/02/2022 Documentation Only [facility] [address] [place] [phone] Abiodun Porras MD [address] [place] [id number] Social History Tobacco Use Types Packs/Day Years [...] Visit [facility], [address] [place] [phone] Ron Tan MD [address] [place] [address] [place] [address] documented as of this encounter Visit Diagnoses Not on filedocumented in this encounter Care Teams Nascar Driver Relationship Specialty Start Date End Date Abiodun Porras MD [address] [place] [address] PCP - General Internal Medicine 05/06/22 documented as of this encounter
--- OUTSIDE RECORDS SUMMARY | 2025-06-20 11:59 | XMS_ITS | Encounter Summary ---
Author Organization [facility] Address [address] [place] [address] Phone Care Team Providers Care Wood Boatbuilder Apprentice Name Role Phone Abiodun Porras MD Primary Care Provider [phone] Encounter Details Date Type Department Care Team (Late st Contact Info) Description 10/03/2022 Documentation Only [facility] [address] [place] [phone] Ron Tan MD [address] [place] [address] [place] [phone] Social History Tobacco Use Types Packs/Day Years [...] on file documented as of this encounter Functional Status documented as of this encounter Plan of Treatment Upcoming Encounters Date Type Department Care Team (Late st Contact Info) Description 11/04/2025 10:50 AM EDT Office Visit [facility] [address] [place] [phone] Ron Tan MD [address] [place] [address] [place] [address] documented as of this encounter Visit Diagnoses Not on filedocumented in this encounter Care Teams Wood Boatbuilder Apprentice Relationship Specialty Start Date End Date Abiodun Porras MD [address] [place] [id number] PCP - General Internal Medicine 05/06/22 documented as of this encounter
--- OUTSIDE RECORDS SUMMARY | 2025-06-20 11:59 | XMS_ITS | Encounter Summary ---
Author Organization [facility] Address [address] [place] [address] Phone Care Team Providers Care Refueling Ramp Supervisor Name Role Phone Abiodun Porras MD Primary Care Provider [phone] Encounter Details Date Type Department Care Team (Late st Contact Info) Description 09/02/2024 Documentation Only [facility] [address] [place] [phone] [place] [address] [place] [phone] Social History Tobacco Use Types Packs/Day [...] Visit [facility] [address] [place] [phone] Ron Tan MD [address] [facility] [address] [facility] [place] [address] documented as of this encounter Visit Diagnoses Not on filedocumented in this encounter Care Teams Refueling Ramp Supervisor Relationship Specialty Start Date End Date Abiodun Porras MD [address] [place] [phone] PCP - General Internal Medicine 05/06/22 documented as of this encounter
--- OUTSIDE RECORDS SUMMARY | 2025-06-20 11:59 | XMS_ITS | Patient Health Record ---
Author Organization [facility] Address [address] [place] [phone] Care Team Providers Care Ready To Wear Department Manager Name Role Phone Guillermo Koenig Joshua [phone] Reason For Referral No Information Plan Of Treatment No Information
== END 2025-06-20 11:08 | disposition home or self-care (01) ==
LOC: HO.MAMMO 11:07
PROVIDERS: Visit Provider Internal Medicine
DX: Z12.31 Encounter for screening mammogram for malignant neoplasm of breast (principal)
CPT/HCPCS: 77063; 77067

== ENCOUNTER → 2025-06-20 11:30 | Outpatient (BNV) | payer MEDICARE, OTHER, SELFPAY | PROVIDERS: Visit Provider Internal Medicine | DX: Z12.31 Encounter for screening mammogram for malignant neoplasm of breast (principal) | CPT/HCPCS: 77063; 77067 ==